=== PATIENT | female | born 1985 | race Two or more races ===

== ENCOUNTER 2018-10-24 12:40 | Inpatient (IN) | payer SELFPAY ==
[2018-10-24] MEDS ORDERED: CARBOPROST 250 MCG INJ IM ×3 (13:30→23:30)
[2018-10-24] MEDS ORDERED: METHYLERGONOVINE 0.2 MG INJ IM ×2 (13:30→23:30)
[2018-10-24] MEDS ORDERED: OXYTOCIN 30 UNITS/LR 500 ML IV ×3 (13:30→23:30)
[2018-10-24] MEDS ORDERED: TERBUTALINE 1 ML (13:30)
[2018-10-24] MEDS ORDERED: MISOPROSTOL 200 MCG TAB PR ×3 (13:30→23:30)
[2018-10-24] MEDS ORDERED: CEFAZOLIN 2 GM/50 ML (PMX) 50 ML IVPB (13:30)
[2018-10-24] MEDS: LACTATED RINGER'S 1,000 ML IV ×4 (13:34→22:20)
[2018-10-24] MEDS: TERBUTALINE 1 MG/ML INJ SC (13:34)
[2018-10-24] MEDS: FENTAnyl 50 MCG/ML VIAL IV (13:36)
[2018-10-24 13:43] LABS: ADD MAN DIFF? NO
[2018-10-24 13:46] LABS: WHITE BLOOD COUNT 11.9 10^3/ul (4.8-10.8)
[2018-10-24 13:46] LABS: BASOPHILS % 0.3 % (0.0-2.0); EOSINOPHILS % 0.3 % (0.0-7.0); HEMATOCRIT 38.9 % (37.0-47.0); HEMOGLOBIN 13.5 g/dl (12.0-16.0); LYMPHOCYTES # 2.3 10^3/ul (0.8-2.9); LYMPHOCYTES % 19.5 % (15.0-51.0); MEAN CORPUSCULAR HEMOGLOBIN 31.8 pg (29.0-33.0); MEAN CORPUSCULAR HGB CONC 34.7 g/dl (32.0-37.0); MEAN CORPUSCULAR VOLUME 91.7 fl (82.0-101.0); MEAN PLATELET VOLUME 12.2 fl (7.4-10.4); MONOCYTE # 0.8 10^3/ul (0.3-0.9); MONOCYTES % 6.5 % (0.0-11.0); NEUTROPHIL # 8.7 10^3/ul (1.6-7.5); PLATELET COUNT 208 10^3/UL (140-415); RED BLOOD COUNT 4.24 10^6/ul (4.20-5.40); RED CELL DISTRIBUTION WIDTH 12.8 % (11.5-14.5)
[2018-10-24 14:27] LABS: INR 0.86; PROTIME 11.8 Sec (11.9-14.9); PT RATIO 0.9
[2018-10-24 14:28] LABS: PARTIAL THROMBOPLASTIN TIME 27.1 Sec (23.0-35.0)
[2018-10-24 14:35] LABS: HEPATITIS B SURFACE ANTIGEN NEGATIVE (NEGATIVE)
[2018-10-24] MEDS ORDERED: LIDOCAINE 1% (MPF) 30 ML INJ INJ (15:00)
[2018-10-24 15:12] LABS: RAPID PLASMA REAGIN NONREACTIVE (NR)
[2018-10-24] MEDS ORDERED: FENTAnyl 2MCG/ML-ROPIV 0.2% 100 ML (15:29)
[2018-10-24] MEDS: AMPICILLIN 2 GM/NS (PMX) 100 ML IV (15:36)
[2018-10-24] MEDS ORDERED: FENTAnyl 2MCG/ML-ROPIV 0.2% 100 ML BAG EPI (16:00)
[2018-10-24] MEDS ORDERED: NALOXONE (0.4 MG/ML) INJ IV (16:00)
[2018-10-24] MEDS: MINERAL OIL LIGHT 10 ML VIAL TOP (17:42)
[2018-10-24] MEDS: OXYTOCIN 30 UNITS/LR 500 ML IV ×2 (18:00→18:12)
[2018-10-24] MEDS: METHYLERGONOVINE 0.2 MG INJ IM (18:09)
[2018-10-24] MEDS: AMPICILLIN 1 GM/NS (PMX) 50 ML IV (22:15)
[2018-10-24] MEDS: IBUPROFEN 600 MG TAB PO (22:17)
[2018-10-24] MEDS: LACTATED RINGER'S 1,000 ML IV* (23:02)
[2018-10-24] MEDS: DEXTROSE 5%-LR 1,000 ML IV (23:02)
[2018-10-24] MEDS ORDERED: ONDANSETRON 4 MG INJ IV (23:30)
[2018-10-24] MEDS ORDERED: ZOLPIDEM 5 MG TAB PO (23:30)
[2018-10-24] MEDS ORDERED: DIPHENHYDRAMINE 50 MG INJ IV (23:30)
[2018-10-24] MEDS ORDERED: MAGNESIUM HYDROXIDE 30ML CUP PO (23:30)
[2018-10-24] MEDS ORDERED: OXYCODONE/ASPIRIN (4.88/325) TAB PO (23:30)
[2018-10-24] MEDS ORDERED: ACETAMINOPHEN 325 MG TAB PO (23:30)
[2018-10-24] MEDS ORDERED: DIBUCAINE 1% 30 GM OINT TOP (23:30)
[2018-10-25] MEDS: BENZOCAINE 20% 56 ML SPRAY TOP ×2 (00:14→20:37)
[2018-10-25] MEDS: LANOLIN HPA 1 PKT TOP (00:14)
[2018-10-25] MEDS: SENNA/DOCUSATE NA (8.6MG/50MG) TAB PO ×2 (00:14→20:37)
[2018-10-25] MEDS: WITCH HAZEL/GLYCERIN PAD PR ×2 (00:14→20:37)
[2018-10-25] MEDS: IBUPROFEN 600 MG TAB PO ×4 (05:12→17:50)
[2018-10-25] MEDS: DEXTROSE 5%-LR 1,000 ML IV ×2 (07:02→15:02)
[2018-10-25] MEDS: LACTATED RINGER'S 1,000 ML IV* ×2 (07:02→15:02)
[2018-10-25 08:21] LABS: ADD MAN DIFF? NO
[2018-10-25 08:31] LABS: ABNORMAL IP MESSAGE 1; BASOPHILS % 0.1 % (0.0-2.0); EOSINOPHILS % 0.3 % (0.0-7.0); HEMATOCRIT 34.9 % (37.0-47.0); HEMOGLOBIN 12.1 g/dl (12.0-16.0); LYMPHOCYTES # 2.8 10^3/ul (0.8-2.9); LYMPHOCYTES % 18.6 % (15.0-51.0); MEAN CORPUSCULAR HGB CONC 34.7 g/dl (32.0-37.0); MEAN CORPUSCULAR VOLUME 92.3 fl (82.0-101.0); MEAN PLATELET VOLUME 13.5 fl (7.4-10.4); MONOCYTE # 1.1 10^3/ul (0.3-0.9); MONOCYTES % 7.4 % (0.0-11.0); NEUTROPHIL # 10.8 10^3/ul (1.6-7.5); NEUTROPHILS % 73.3 % (39.0-77.0); PLATELET COUNT 169 10^3/UL (140-415); RED BLOOD COUNT 3.78 10^6/ul (4.20-5.40); RED CELL DISTRIBUTION WIDTH 13.1 % (11.5-14.5)
[2018-10-25 08:31] LABS: WHITE BLOOD COUNT 14.8 10^3/ul (4.8-10.8)
[2018-10-25 08:37] LABS: POSITIVE DIFF @See below
[2018-10-26] MEDS: IBUPROFEN 600 MG TAB PO ×3 (05:32→12:03)
[2018-10-26] MEDS: MEASLES,MUMPS,RUBELLA VACCINE INJ SC* (08:51)
[2018-10-26] MEDS: DIPHTH/TET/ACEL PERTUSS (ADULT) 0.5 ML VIAL IM* (10:27)
== END 2018-10-26 18:50 | disposition home or self-care (01) | DRG 807 ==
LOC: OBT 12:40 → L-D 12:40 → OBT 13:10 → L-D 13:13 → PP1 20:25
PROVIDERS: Obstetrics & Gynecology
PROC: 10E0XZZ Delivery of Products of Conception, External Approach (ICD-10-PCS; principal; 2018-10-24)
PROC: 3E033VJ Introduction of Other Hormone into Peripheral Vein, Percutaneous Approach (ICD-10-PCS; 2018-10-24)
DX: O60.13X0 Preterm labor second trimester with preterm delivery third trimester, not applicable or unspecified (principal); Z37.0 Single live birth; Z3A.36 36 weeks gestation of pregnancy
CPT/HCPCS: 59412; 62322; 76815; 76816; 85025; 85610; 85730; 86592; 86850; 86900; 86901; 87340; 90715